=== PATIENT | male | born 1950 | race Caucasian/White ===

== ENCOUNTER 2022-02-16 07:57 | Day surgery (SDC) | payer MEDICARE ==
[~2022-02-16] VITALS: Ht 193 cm; Wt 117.7 kg
[~2022-02-16 07:57] MED LIST: ALBU90OI61 INH; Cialis5 MG PO; Cyclobenzaprine5 MG PO; Cymbalta30 MG PO; DULO30 PO; FLUSAL2505 INH; LANS30EC PO; METPRE4DP PO; MONT10T PO; Norco 5-325 Ta1 EACH PO; PANT20 PO; TAMS.4ER PO
[2022-02-16] MEDS ORDERED: PROP10 (08:53)
== END 2022-02-16 10:27 | disposition home or self-care (01) ==
LOC: ORSCSDS 07:57
PROVIDERS: Surgery
PROC: 0DJD8ZZ Inspection of Lower Intestinal Tract, Via Natural or Artificial Opening Endoscopic (ICD-10-PCS; principal; 2022-02-16 09:30)
DX: Z85.048 Personal history of other malignant neoplasm of rectum, rectosigmoid junction, and anus (principal); K43.5 Parastomal hernia without obstruction or gangrene; K21.9 Gastro-esophageal reflux disease without esophagitis; J45.909 Unspecified asthma, uncomplicated; E78.5 Hyperlipidemia, unspecified; I10 Essential (primary) hypertension; G47.33 Obstructive sleep apnea (adult) (pediatric); E66.9 Obesity, unspecified; Z68.32 Body mass index [BMI] 32.0-32.9, adult; Z79.899 Other long term (current) drug therapy
CPT/HCPCS: J2704; J7120

== ENCOUNTER 2024-07-01 10:50 | Day surgery (SDC) | payer MEDICARE ==
[~2024-07-01] VITALS: Ht 193 cm; Wt 118.3 kg
[2024-07-01] VITALS (8 sets, daily range): BP systolic 119–170; BP diastolic 76–92
[~2024-07-01 10:50] MED LIST changes: +Crestor40 MG PO; +GABA300T24 PO; +HYDCHL25 PO; +METR59TL TOP; +MUPIROCIN15 GM TOP; +PANTOPRAZOLE SO PO; +PROP10 PO; +Sanctura20 MG PO
[2024-07-01] MEDS ORDERED: DiphenhydrAMINE HCL 25 MG Cap PO PRN (11:50)
[2024-07-01] MEDS ORDERED: FLU VACC TS2024-25(6MOS UP)/PF 45 MCG/0.5 ML SYRINGE IM SCH (11:50)
[2024-07-01] MEDS ORDERED: HYDROmorphone HCl/Pf 1MG SYR IV PRN (11:50)
[2024-07-01] MEDS ORDERED: Bisacodyl 10 MG Supp PR PRN (11:50)
[2024-07-01] MEDS ORDERED: Ondansetron HCl 2 MG / ML 2ML Vial IV PRN (11:55)
[2024-07-01] MEDS ORDERED: Magnesium Hydroxide Conc 10 ML UDC PO PRN (11:55)
[2024-07-01] MEDS ORDERED: Lactated Ringer's 1,000 ML IV SCH ×2 (11:55→12:40)
[2024-07-01] MEDS ORDERED: Metoclopramide HCl 5MG / ML 2ML Vial IV PRN (11:55)
[2024-07-01] MEDS ORDERED: OxyCODONE HCL 5 MG TAB PO PRN ×2 (11:55)
[2024-07-01] MEDS ORDERED: Promethazine HCl 25 MG Tab PO PRN (12:00)
[2024-07-01] MEDS ORDERED: ALBU90OI INH (12:26)
[2024-07-01] MEDS ORDERED: Ropivacaine 0.5% HCl/Pf 123.125 MG,EPINEPHrine HCL 0.25 MG,Ketorolac Tromethamine 15 MG... INFIL SCH (12:40)
[2024-07-01] MEDS ORDERED: CeFAZolin Sodium 2,000 MG in NS 100 ML IV SCH ×2 (12:40→23:00)
[2024-07-01] MEDS ORDERED: Chlorhexidine Mouth Care 15 ML UDC MT SCH (12:40)
[2024-07-01] MEDS ORDERED: Tranexamic Acid 100 ML IV SCH (12:40)
[2024-07-01] MEDS ORDERED: OxyCODONE HCL 10 MG TABCR PO SCH (12:40)
[2024-07-01] MEDS ORDERED: Acetaminophen 500 MG Tab PO SCH ×2 (12:40→16:00)
[2024-07-01] MEDS ORDERED: CeFAZolin Sodium 2,000 MG VIAL ONE (12:52)
--- NOTE | 2024-07-01 13:11 | NUR ---
Ambulatory in Day Surgery History, Chart, Medications and Allergies reviewed before start of procedure. Pre-Op teaching done. Pt verbalizes understanding.
[2024-07-01] MEDS ORDERED: propofoL 40 ML IV ONE ×3 (13:24→16:21)
[2024-07-01] MEDS ORDERED: propofoL 20 ML IV ONE (13:58)
[2024-07-01] MEDS ORDERED: ePHEDrine Sulfate 50 MG/ML 1ML Injection ONE (15:05)
--- NOTE | 2024-07-01 15:38 | NUR ---
07/01/24 1538 Davy,Heather SPINAL BLOCK COMPLETED BY UPON ENTRY TO OR. PATIENT TOLERATED WELL.
[2024-07-01] MEDS ORDERED: Gabapentin 300 MG Cap PO PRN (15:45)
[2024-07-01] MEDS ORDERED: METRONIDAZOLE 0.75% TOP PRN (15:50)
[2024-07-01] MEDS ORDERED: Mupirocin 2% Ointment 22 GM TOP PRN (15:50)
--- NOTE | 2024-07-01 17:52 | NUR ---
Pt arrived to room via hospital bed. L knee incision covered with aquacel and edelmira bandage, c/d/i. Cold pack in place. Unable to feel or wiggle toes at this time. A&O x4, vss, PPP, denies n/v. Snacks and water at bedside. Bed in lowest position. Call light within reach.
[2024-07-01] MEDS ORDERED: Ketorolac Tromethamine 15mg Vial IV SCH (18:00)
--- NOTE | 2024-07-01 18:49 | NUR ---
SHIFT SUMMARY NO ACUTE EVENTS NOTED SINCE ARRIVAL TO ROOM. VSS. INCISION SITE C/D/I. UNABLE TO FEEL SENSATION. WIGGLES TOES SLIGHTLY. PPP. EATING/DRINKING WITHOUT DIFFICULTY. PENDING FIRST POST OP VOID AT THIS TIME. CALL LIGHT WITHIN REACH. BED IN LOWEST POSITION.
[2024-07-01] MEDS ORDERED: Rosuvastatin Calcium 10 MG Tab PO SCH (21:00)
[2024-07-01] MEDS ORDERED: Trospium Chloride 20 MG Tab PO SCH (21:00)
[2024-07-01] MEDS ORDERED: Docusate Sodium 100 MG Cap PO SCH (21:00)
[2024-07-02 00:31] VITALS: BP 114/75
--- NOTE | 2024-07-02 04:08 | NUR ---
SHIFT SUMMARY PT HAS RESTED T/O THE NIGHT. POD 0 LEFT TOTAL KNEE. PAIN HAS BEEN MANAGED WITH MEDS PER EMAR. PT TOLERATING PO INTAKE, VOIDING AND AMBULATING. VITALS STABLE. SURGICAL SITE WNL. BED IN LOWEST POSITION, CALL LIGHT WITHIN REACH.
[2024-07-02 04:40] VITALS: BP 124/79
[2024-07-02 04:44] LABS: BASOPHILS ABSOLUTE AUTO 0.03 K/mm3 (0.00-0.23); BASOPHILS PERCENT AUTO 0 % (0-2); EOSINOPHILS ABSOLUTE AUTO 0.21 K/mm3 (0.00-0.68); EOSINOPHILS PERCENT AUTO 2 % (0-6); Hematocrit 42.6 % (37.0-53.0); IMMATURE GRAN ABSOLUTE AUTO 0.05 K/mm3 (0.00-0.10); IMMATURE GRAN PERCENT AUTO 1 % (0-1); LYMPHOCYTES ABSOLUTE AUTO 1.83 K/mm3 (0.84-5.20); LYMPHOCYTES PERCENT AUTO 20 % (21-46); MONOCYTES ABSOLUTE AUTO 0.88 K/mm3 (0.16-1.47); MONOCYTES PERCENT AUTO 10 % (4-13); Mean Corpuscular HGB 29.9 pg (26.0-34.0); Mean Corpuscular HGB Conc 32.9 g/dL (31.5-36.5); Mean Corpuscular Volume 91 fL (80-100); Mean Platelet Volume 9.2 fL (9.1-12.4); NEUTROPHILS ABSOLUTE AUTO 6.25 K/mm3 (1.96-9.15); NEUTROPHILS PERCENT AUTO 68 % (41-73); Platelet Count 210 K/mm3 (150-400); RDW Coefficient Variation 12.8 % (11.7-14.2); RDW Standard Deviation 42.5 fL (35.1-46.3); Red Blood Cell Count 4.68 M/mm3 (4.30-5.90); White Blood Cell Count 9.25 K/mm3 (4.00-11.30)
[2024-07-02 05:14] LABS: Bun/Creatinine Ratio 21.5 (12.0-20.0); Calcium, Blood 8.7 mg/dL (8.5-10.1); Creatinine, Blood 1.35 mg/dL (0.60-1.20); Potassium, Blood 3.7 mmol/L (3.5-5.5)
[2024-07-02] MEDS ORDERED: Pantoprazole Sodium 20 MG Tab PO SCH (06:00)
[2024-07-02] MEDS ORDERED: ASPI81CH PO (06:47)
[2024-07-02 07:19] VITALS: BP 119/74
[2024-07-02] MEDS ORDERED: HydroCHLOROthiazide 25 mg Tab PO SCH (09:00)
[2024-07-02] MEDS ORDERED: Propranolol HCL 20 MG TAB PO SCH (09:00)
[2024-07-02] MEDS ORDERED: Aspirin 81 MG Chew PO SCH (09:00)
[2024-07-02] MEDS ORDERED: Gabapentin 300 MG Cap PO SCH (09:00)
--- NOTE | 2024-07-02 10:47 | NUR ---
DISCHARGE PT HAS WORKED w/ THERAPY. PAIN WELL CONTROLLED. EATING, DRINKING, & VOIDING WELL. SUDHAKAR & NAHID TAYLOR SENT w/ PT. ESCORTED OUT VIA W/C.
== END 2024-07-02 10:28 | disposition home or self-care (01) ==
LOC: ORSCMMR 10:50 → SURS 17:58 → ORSCMMR 07-02 10:28
PROVIDERS: Orthopaedic Surgery
PROC: 0SRD0JA Replacement of Left Knee Joint with Synthetic Substitute, Uncemented, Open Approach (ICD-10-PCS; principal; 2024-07-01 12:30)
DX: M17.12 Unilateral primary osteoarthritis, left knee (principal); I10 Essential (primary) hypertension; J45.909 Unspecified asthma, uncomplicated; Z85.038 Personal history of other malignant neoplasm of large intestine; Z79.899 Other long term (current) drug therapy
CPT/HCPCS: 36415; 73560-LT; 80048; 85025; 97110; 97116; 97162; 97530; A9270; C1776; J0171; J0690; J0735; J1885; J2470; J2704; J2795; J7120